=== PATIENT | female | born 1980 | race Caucasian/White ===

== ENCOUNTER 2017-10-12 11:11 | Emergency (ER) | payer OTHER ==
[~2017-10-12] VITALS: Ht 157.5 cm; Wt 62.1 kg
[~2017-10-12 11:11] MED LIST: PRENATAL VITAM1 EACH PO; SEPTRA DS TABLE1 TAB PO
== END 2017-10-12 13:15 | disposition home or self-care (01) ==
LOC: ER 11:11
DX: B34.9 Viral infection, unspecified (principal); N39.0 Urinary tract infection, site not specified

== ENCOUNTER 2024-07-27 13:14 | Outpatient (CLI) | payer OTHER | END 2024-07-27 13:28 | disposition home or self-care (01) | LOC: MAMO-SONO 13:14 | DX: M25.521 Pain in right elbow (principal); M79.642 Pain in left hand; Z12.31 Encounter for screening mammogram for malignant neoplasm of breast ==

== ENCOUNTER 2024-10-26 07:28 | Outpatient (CLI) | payer OTHER | END 2024-10-26 07:35 | disposition home or self-care (01) | LOC: SONOGRAMA 07:28 | DX: M25.521 Pain in right elbow (principal) ==

== ENCOUNTER 2024-12-14 12:50 | Outpatient (CLI) | payer OTHER | END 2024-12-14 12:53 | disposition home or self-care (01) | LOC: RAD 12:50 | DX: Z02.9 Encounter for administrative examinations, unspecified (principal); M25.531 Pain in right wrist; M25.521 Pain in right elbow; Z68.26 Body mass index [BMI] 26.0-26.9, adult ==

== ENCOUNTER 2025-02-02 08:01 | Day surgery (SDC) | payer OTHER ==
[2025-01-25 07:59] LABS: BASO % 0.2 % (0.1-1.2); EOS # 0.12 (0.04-0.54); EOS % 2.0 % (0.7-7.0); LYMPH # 1.58 (1.18-3.74); LYMPH % 26.9 % (19.3-53.1); MEAN PLATELET VOLUME 10.20 fl (9.4-12.4); MONO # 0.48 (0.24-0.82); MONO % 8.2 % (4.7-12.5); NEUT # 3.67 (1.56-6.13); NEUT % 62.4 % (34.0-71.1); RED CELL DISTRIBUTION WIDTH 16.7 % (11.6-14.4)
[2025-01-25 08:01] LABS: URINE APPEARANCE Cloudy; URINE BILIRRUBIN Negative (NEGATIVE); URINE BLOOD Trace; URINE COLOR Yellow; URINE GLUCOSE Negative (NEGATIVE); URINE KETONE Negative (NEGATIVE); URINE LEUKOCYTE Trace; URINE NITRATE Negative; URINE PROTEIN Negative (NEGATIVE); URINE UROBILINOGEN 1.0 E.U./dl
[2025-01-25 08:02] VITALS: BP 123/80
[2025-01-25 08:06] LABS: URINE BACTERIA 203.9 uL (0.0-1933); URINE EPITHELIAL CELLS 19.0 uL (0.0-38.8); URINE RBC 41.2 uL (0.0-20.8); URINE WBC 9.2 uL (0.0-23.2)
[2025-01-25 08:33] LABS: URINE CAST 0.00 uL (0.0-1.40)
[2025-01-25 08:34] LABS: INR 0.99
[2025-01-25 08:40] LABS: ALT/SGPT 18.0 U/L (12-78); AST/SGOT 9.0 U/L (15-37); BILIRUBIN TOTAL 0.55 mg/dL (0.3-1.2); BUN CREA RATIO 21.0 (7.0-25.0); CREATININE SERUM 0.62 mg/dL (0.55-1.02); GFR 104.57; GLOBULINA 3.6 G/DL (2.4-3.5); GLUCOSE FASTING 94.0 mg/dL (65-100); OSMOLALITY SERUM 281.0 MOSM/KG (275-295)
[~2025-02-02] VITALS: Ht 157.5 cm; Wt 65.8 kg
[2025-02-02] MEDS ORDERED: ISOPROPYL ALCOHOL 30 ML OUNCE TOP ONE (12:30)
[2025-02-02] MEDS ORDERED: BUPIVACAINE HCL 30 ML VIAL IV ONE (12:30)
[2025-02-02] MEDS ORDERED: CEFAZOLIN SODIUM 1,000 MG VIAL IV ONE (12:30)
[2025-02-02] MEDS ORDERED: SUGAMMADEX SODIUM 200 MG/2 ML VIAL IV ONE (12:30)
[2025-02-02] MEDS ORDERED: MORPHINE SULFATE 4 MG/ML VIAL IV ONE (13:00)
== END 2025-02-02 14:20 | disposition home or self-care (01) ==
LOC: CIR.AMB 08:01
PROVIDERS: ATTEND Orthopaedic Surgery Hand Surgery
DX: M77.11 Lateral epicondylitis, right elbow (principal)

== ENCOUNTER 2025-03-30 10:31 | Outpatient (CLI) | payer OTHER | END 2025-03-30 10:35 | disposition home or self-care (01) | LOC: RAD 10:31 | DX: M25.531 Pain in right wrist (principal) ==